=== PATIENT | male | born 1965 | race African-American/Black ===

== ENCOUNTER 2017-02-09 15:44 | Emergency (ER) | payer MEDICAID ==
[~2017-02-09] VITALS: Ht 175.3 cm; Wt 75.0 kg
[~2017-02-09 15:44] MED LIST: ASPI-292; ATOR80TA; CALC-25; CALC667T5; CINA90TA; CLOP75TA2; NPH; [UNRECOGNIZED DRUG - CODE]
[2017-02-09 16:47] LABS: BASOPHILS % 1.3 % (0.0-2.0); HEMOGLOBIN. 12.5 g/dL (14.0-18.0); LYMPHOCYTES % 7.8 % (20.0-50.0); MEAN CORPUSCULAR HEMOGLOBIN 26.9 pg (28.0-32.0); MEAN CORPUSCULAR HGB CONC 32.1 g/dL (31.0-37.0); MEAN CORPUSCULAR VOLUME 83.9 fL (80.0-94.0); MEAN PLATELET VOLUME 9.7 fl (7.4-10.4); MONOCYTES % 12.3 % (2.0-8.0); NEUTROPHILS % 77.6 % (40.0-76.0); PLATELET 220 x1000/uL (130-400); RED BLOOD CELL COUNT 4.65 mill/uL (4.7-6.1); RED CELL DISTRIBUTION WIDTH 18.9 % (11.6-14.6); WHITE BLOOD COUNT 11.4 x1000/uL (4.5-11.0)
[2017-02-09 16:53] LABS: INR 2.1; PROTHROMBIN TIME 21.9 sec
[2017-02-09 16:59] LABS: ALANINE AMINOTRANSFERASE 29 IU/L (13-61); ALBUMIN 3.8 g/dL (3.4-5.0); ANION GAP 16; CALCIUM 9.7 mg/dL (8.5-10.1); CARBON DIOXIDE 30 mEq/L (21-32); CHLORIDE 96 mEq/L (98-107); INDEX HEMOLYSI 1 (1-3); INDEX ICTERIC 1 (1-4); INDEX LIPEMIC 1 (1-3); UREA NITROGEN BLOOD 34 mg/dL (7-21); eGFR 10 mL/min (>60)
[2017-02-09] MEDS ORDERED: OXYCODONE HCL/ACETAMINOPHEN 5/325MG TABLET PO ONE (18:15)
[2017-02-09 18:41] VITALS: BP 156/84
[2017-02-09] MEDS ORDERED: LEVOFLOXACIN 500MG TABLET PO ONE (18:45)
== END 2017-02-09 18:55 | disposition home or self-care (01) ==
LOC: ER 18:28
DX: N34.2 Other urethritis (principal); E11.22 Type 2 diabetes mellitus with diabetic chronic kidney disease; N18.6 End stage renal disease; Z79.4 Long term (current) use of insulin; Z79.82 Long term (current) use of aspirin; Z79.899 Other long term (current) drug therapy; F17.210 Nicotine dependence, cigarettes, uncomplicated
CPT/HCPCS: 36415; 80053; 85025; 85610; 99284